=== PATIENT | male | born 1965 | race Caucasian/White ===

== ENCOUNTER 2021-08-05 11:40 | Inpatient (IN) | payer BC ==
[~2021-08-05] VITALS: Ht 180.3 cm; Wt 95.2 kg
[~2021-08-05 11:40] MED LIST: LISINOPRIL2.5 MG PO; LOTREL 5 MG-101 CAP PO; bp med
[2021-08-31] VITALS (12 sets, daily range): BP systolic 112–1029; BP diastolic 66–83; PULSE 76–96; TEMP 97.4–98.5
[2021-08-31] MEDS ORDERED: NORVASC 5MG5 MG/TAB PO (05:33)
[2021-08-31] MEDS ORDERED: LOTENSIN 1010 MG/TAB PO (05:33)
[2021-08-31] MEDS ORDERED: CIALIS5 MG PO (05:34)
[2021-08-31] MEDS ORDERED: GLUCOPHAGE500 MG/TAB PO (05:34)
[2021-08-31] MEDS ORDERED: ADDERALL15 MG PO (05:43)
[2021-08-31 06:17] LABS: BASO # 0.1 K/mm3 (0.0-0.2); BASO % 0.9 % (0.0-2.0); EOS # 0.4 K/mm3 (0.0-0.7); EOS % 5.3 % (0-4.0); GRAN # 4.9 K/mm3 (1.4-6.5); GRAN % 66.5 % (42.2-75.2); HEMOGLOBIN 15.8 g/dl (13.5-18.0); LYMPH # 1.2 K/mm3 (1.2-3.4); LYMPH % 16.4 % (20.0-51.0); MEAN CELL VOLUME 83 fl (80.0-100.0); MEAN CORPUSCULAR HEMOGLOBIN 30 pg (27.0-31.0); MEAN CORPUSCULAR HGB CONC 36 g/dl (33.0-37.0); MEAN PLATELET VOLUME 10.5 fl (7.4-10.4); MONO # 0.7 K/mm3 (0.1-0.6); PLATELET COUNT 217 K/mm3 (130-400); REDCELL DISTRIBUTION WIDTH-CV 12.2 % (11.5-14.5)
[2021-08-31 06:44] LABS: ALBUMIN 4.3 gm/dL (3.5-5.0); BILIRUBIN,TOTAL 0.4 mg/dL (0.2-1.2); CALCIUM 9.3 mg/dL (8.4-10.2); CREATININE, serum 1.02 mg/dL (0.72-1.25); TOTAL PROTEIN 7.2 gm/dL (6.2-8.1)
--- NOTE | 2021-08-31 06:57 | NUR ---
NOTIFIED JORGE DAVIS OF PATIENT'S BLOOD SUGAR OF 249.
--- NOTE | 2021-08-31 13:50 | NUR ---
PT TO ROOM 349 PER BED WITH REPORT FROM [facility] PACU @1210. PT IS DROWSEY BUT AROUSES TO VERBAL. VSS, ASSESSMENTS COMPLETE. 5 INCISONS AND ONE CAITLIN DRAIN. INCISIONS CLOSED WITH EXOPHEN. DRIAIN WITH SEROSAINGUENOUS DRAINAGE. CARRASCO TO DD WITH PEACH COLORED URINE IN BAG.
--- NOTE | 2021-08-31 20:00 | NUR ---
Pt. sittin up in bed. Pt. is A&OX3, assessment complete. IV to rt. hand patent, IV fluids infusing per orders. Rachel catheter to DD, Mor[place], clear urine noted. CAITLIN to LLQ, minimal drainage at this time. Pt. ambulating in the snowden independently. Pt. denies pain or other needs, call light within reach.
[2021-09-01 03:37] VITALS: BP 129/91; PULSE 87; TEMP 98.5
[2021-09-01 06:55] LABS: HEMATOCRIT 41.7 % (42.0-52.0); HEMOGLOBIN 14.5 g/dl (13.5-18.0)
[2021-09-01 07:05] LABS: CALCIUM 9.3 mg/dL (8.4-10.2); CREATININE, serum 1.01 mg/dL (0.72-1.25); POTASSIUM 3.8 mmol/L (3.5-4.5)
[2021-09-01 07:56] VITALS: BP 154/85; PULSE 91; TEMP 98.6
--- NOTE | 2021-09-01 09:53 | NUR ---
PT DOING WELL, PAIN WELL CONTROLLED, URINE CLEARING. EATING AND DRINKING NO N/V,
--- NOTE | 2021-09-01 10:15 | NUR ---
Paint Brush Maker met with patient to discuss discharge planning. Patient's partner, Melissa is at bedside and reports they are not at this time. Patient's legal next of kin would be his children: Radha, Christiana, and Arnaud. Patient lives in [facility] and sees Dr. Kwok for primary care. Patient obtains medications from [facility] in [place] with no difficulties. Patient does not use any DME and is independent with ADLS. Patient does not have Advance Directives and is not interested in completing DPOA-HC at this time.
--- NOTE | 2021-09-01 11:39 | NUR ---
First visit from the clinical unit educator. No needs right now.
[2021-09-01 11:40] VITALS: BP 161/87; PULSE 99; TEMP 97.7
[2021-09-01] MEDS ORDERED: NORCO 325 MG-51 TAB PO (14:07)
--- NOTE | 2021-09-01 15:28 | NUR ---
DISSCHARGE INSTRUCTIONS REVIEWED WITH PT AND . LEG BAG TEACHING COMLETE. PT LEFT IN WHEEL CHAIR.
== END 2021-09-01 15:29 | disposition home or self-care (01) | DRG 708 ==
LOC: INPTSU 08-31 05:25 → SURG 08-31 07:30
PROVIDERS: ADMIT Urology
PROC: 8E0W4CZ Robotic Assisted Procedure of Trunk Region, Percutaneous Endoscopic Approach (ICD-10-PCS; 2021-08-31)
PROC: 0VT04ZZ Resection of Prostate, Percutaneous Endoscopic Approach (ICD-10-PCS; principal; 2021-08-31 07:30)
DX: C61 Malignant neoplasm of prostate (principal)
CPT/HCPCS: A4314; A9284; J0330; J0690; J1885; J2704; J3010; J7030; J7120